=== PATIENT | male | born 1970 | race Two or more races ===

== ENCOUNTER 2017-02-26 19:53 | Emergency (ER) | payer OTHER ==
[2017-02-26 19:58] VITALS: BP 121/89; PULSE 90; TEMP 97.5; BMI 26.4
--- NOTE | 2017-02-26 20:03 | PDOC ---
History of Present Illness - General Chief Complaint: Respiratory Stated Complaint: COLD SYMPTOMS Time Seen by Provider: 02/26/17 20:01 History Source: Patient - History of Present Illness Timing/Duration: reports: other (3 days ago) Modifying Factors: improves with: coughing Associated Symptoms: reports: wheezing. denies: chest pain/soreness, fever/ chills, shortness of breath Past History - Past Medical History Allergies/Adverse Reactions: Allergies Allergy/AdvReac Type Severity Reaction Status Date / Time No Known Allergies Allergy Verified 02/26/17 19:57 Home Medications: Ambulatory Orders Azithromycin [Zithromax 250mg Tablets -] 250 mg PO DAILY #6 tab 02/26/17 HTN: Yes - Psycho/Social/Smoking Cessation Hx Suicidal Ideation: No Smoking History: Current every day smoker Number of Cigarettes Smoked Daily: 3 Information on smoking cessation initiated: No Review of Systems - Review of Systems Constitutional: No: Chills, Fever, Night Sweats, Unintentional Wgt. Loss Respiratory: Yes: Cough, Wheezing. No: Shortness of Breath Cardiac (ROS): No: Chest Pain *Physical Exam - Vital Signs Last Vital Signs Temp Pulse Resp BP Pulse Ox 97.5 F L 90 18 121/89 97 02/26/17 19:55 02/26/17 19:55 02/26/17 19:55 02/26/17 19:55 02/26/17 19:55 - Physical Exam General Appearance: Yes: Appropriately Dressed. No: Apparent Distress HEENT: positive: Normal ENT Inspection, Normal Voice. negative: Scleral Icterus (R), Scleral Icterus (L) Neck: positive: Supple Respiratory/Chest: positive: Lungs Clear, Normal Breath Sounds. negative: Respiratory Distress, Wheezing Cardiovascular: positive: Regular Rate, S1, S2 Integumentary: positive: Dry, Warm Neurologic: positive: Fully Oriented, Alert, Normal Mood/Affect Medical Decision Making - Medical Decision Making 02/26/17 20:34 46-year-old male, [id number] history, here with cough with possible wheezing 3 days. Denies shortness of breath, chest pain, fever or chills. No hemoptysis or unexplained weight loss. No sick contacts. See exam Possibly bronchitis in smoker Stable w/ clear chest/lungs -CXR -consider zpack at pr -encourage smoking cessation 02/26/17 20:56 CXR neg for infiltrates. Dc w/ javier *DC/Admit/Observation/Transfer Diagnosis at time of Disposition: Wheezing - Discharge Dispostion Disposition: HOME Condition at time of disposition: Good - Prescriptions Prescriptions: Azithromycin [Zithromax 250mg Tablets -] 250 mg PO DAILY #6 tab - Referrals Referrals: Darshana Smith MD [Primary Care Provider] - - Patient Instructions Printed Discharge Instructions: DI for Acute Bronchitis, How to Quit Smoking Additional Instructions: Take antibiotics as directed and return for worsening of symptoms Strongly consider stop smoking Please follow up with your PMD
== END 2017-02-26 21:05 | disposition home or self-care (01) ==
LOC: JERFT 19:53
DX: J20.9 Acute bronchitis, unspecified (principal); I10 Essential (primary) hypertension
CPT/HCPCS: 71020-TC; 99281-25

== ENCOUNTER 2017-05-15 20:06 | Emergency (ER) | payer OTHER ==
[2017-05-15 20:15] VITALS: BP 153/91; PULSE 78; TEMP 97.5; BMI 25.7
--- NOTE | 2017-05-15 20:45 | PDOC ---
History of Present Illness - General Chief Complaint: Pain Stated Complaint: LEFT SIDE PAIN Time Seen by Provider: 05/15/17 20:39 History Source: Patient Exam Limitations: No Limitations - History of Present Illness Initial Comments: CHIEF COMPLAINT: 46 y/o afebrile male with PMH HTN c/o left lower abdominal pain x 2 days. HISTORY OF PRESENT ILLNESS: he states the pain also travels to his left side. It is constant pain that got worse this morning. He states he also started having some burning with urination when the abdominal pain started. He denies f /c, n/v/d, CP, SOB, back pain, hematuria, constipation, blood in stool. He has not taken anything for his pain. PCP is Dr. Smith Vital signs on arrival are within normal limits. REVIEW OF SYSTEMS: GENERAL/CONSTITUTIONAL: No fever/chills. No weakness. No weight change. HEAD, EYES, EARS, NOSE AND THROAT: No change in vision. No ear pain or discharge. No sore throat. CARDIOVASCULAR: No chest pain or shortness of breath. RESPIRATORY: No cough, wheezing, or hemoptysis. GASTROINTESTINAL: +left lower abdominal pain that radiates to his left side. GENITOURINARY: +dysuria. No frequency or change in urination. MUSCULOSKELETAL: No joint or muscle swelling or pain. No neck or back pain. SKIN: No rash or easy bruising. NEUROLOGIC: No headache, vertigo, loss of consciousness, or loss of sensation. PHYSICAL EXAM: GENERAL: The patient is awake, alert, and fully oriented, in no acute distress. He is well appearing and ambulatory. HEAD: Normal with no signs of trauma. ENT: Pupils equal, round and reactive to light, extraocular movements intact, sclera anicteric, conjunctiva clear. Neck supple. LUNGS: Clear to auscultation bilaterally. Normal excursion. No respiratory distress or use of accessory muscles. CV: RRR, S1/S2, no MRG. Cap refill < 2 sec. ABDOMEN: Soft, non-distended, pain with palpation of LLQ, left pelvis, left flank and suprapubic region. No rebound, guarding or rigidity. BACK: No CVA TTP b/l. EXTREMITIES: Normal range of motion, no edema. NEUROLOGICAL: Normal speech, normal gait. CN II-XII grossly intact. PSYCH: Normal mood, normal affect. SKIN: Warm, dry, normal turgor, no rashes or lesions noted. Past History - Past Medical History Allergies/Adverse Reactions: Allergies Allergy/AdvReac Type Severity Reaction Status Date / Time No Known Allergies Allergy Verified 05/15/17 20:12 Home Medications: Ambulatory Orders Azithromycin [Zithromax 250mg Tablets -] 250 mg PO DAILY #6 tab 02/26/17 HTN: Yes - Psycho/Social/Smoking Cessation Hx Suicidal Ideation: No Smoking History: Current some day smoker Number of Cigarettes Smoked Daily: 4 Information on smoking cessation initiated: No Hx Alcohol Use: No Drug/Substance Use Hx: No Substance Use Type: None *Physical Exam - Vital Signs Last Vital Signs Temp Pulse Resp BP Pulse Ox 97.5 F L 78 20 153/91 100 05/15/17 20:12 05/15/17 20:12 05/15/17 20:12 05/15/17 20:12 05/15/17 20:12 ED Treatment Course - LABORATORY CBC & Chemistry Diagram: 05/15/17 20:30 05/15/17 20:30 Medical Decision Making - Medical Decision Making A/P: 46 y/o afebrile male with left lower abdominal pain radiating to left side and dysuria x 2 days. Plan is as follows: 1. Labs 2. UA/culture 3. IV toradol 4. GC/chlamydia 5. Spiral CT Pt states his pain has almost completely resolved after Toradol. Labs unremarkable UA unremarkable CT scan machine is currently down. The patient overheard the announcement and informs me he doesn't want to wait for it to be fixed. He wants to sign out AMA. I attempted to get him to reconsider and wait for the machine to be fixed but he said no. I suggested he take Motrin at home for pain and drink lots of water. I suggested he call his doctor tomorrow and return to the ER with any worsening or concerning symptoms. The patient ambulates without difficulty out of the emergency department. He is alert and oriented and of sound decision making capacity. He leaves AGAINST MEDICAL ADVICE. AMA-AGAINST MEDICAL ADVICE The patient is a 46-year-old male who wants to leave the [facility] Emergency Department before assessment, diagnosis and treatment are completed. The patient has been counseled in regard to the benefits of remaining for treatment and the risks of leaving before medical evaluation and care are provided. These risks are many and include failure to diagnose the condition, failure to provide needed treatment, and a failure to obtain needed specialty care as required. The patient has been informed that failure to complete needed diagnosis and treatment may result in pain, worsening of any medical conditions, possible permanent disability, and . Despite receiving detailed information regarding the benefits of completing care as well as the risks of leaving, the patient has elected to leave. An AMA form was completed. The patient has been told that they are welcome to return to the emergency department at any time should their condition worsen or if they have change their mind. *DC/Admit/Observation/Transfer Diagnosis at time of Disposition: Left flank pain - Discharge Dispostion Disposition: AGAINST MEDICAL ADVICE Condition at time of disposition: Improved - Referrals Referrals: Darshana Smith MD [Primary Care Provider] - Call tomorrow - Patient Instructions Printed Discharge Instructions: DI for Flank Pain, DI for Kidney Stones Additional Instructions: Discharge Instructions: -Take Motrin if needed for pain with food -Drink plenty of water -Follow up with your doctor in the morning -Return to the ER immediately with any worsening or concerning symptoms. Instrucciones de marychuy: -Iraj Motrin si es necesario para el dolor con la comida -Beber abundante agua -Siga con lopez mdico por la maana -Vuelva a la vahid de emergencias inmediatamente con cualquier empeoramiento o s ntomas relacionados.
[2017-05-15] MEDS ORDERED: KETOROLAC TROMETHAMINE 30 MG/1 ML VIAL IVPUSH ONE (20:46)
[2017-05-15] MEDS ORDERED: KETOROLAC TROMETHAMINE 30 MG/1 ML VIAL ONE (20:50)
[2017-05-15 21:21] LABS: URINE APPEARANCE CLEAR; URINE BILIRUBIN NEGATIVE (NEGATIVE); URINE BLOOD TRACE-INTA (NEGATIVE); URINE COLOR LT. YELLOW; URINE GLUCOSE (UA) NEGATIVE (NEGATIVE); URINE KETONE NEGATIVE (NEGATIVE); URINE LEUK ESTERASE TRACE (NEGATIVE); URINE NITRITE NEGATIVE (NEGATIVE); URINE PROTEIN NEGATIVE (NEGATIVE); URINE UROBILINOGEN 0.2 mg/dL (0.2-1.0)
[2017-05-15 21:22] LABS: BASOPHIL 0.5 % (0-2.0); EOSINOPHIL 2.2 % (0-4.5); MCH 30.5 pg (25.7-33.7); MCHC 33.8 g/dl (32.0-35.9); MEAN CELL VOLUME 90.4 fl (80-96); MEAN PLT VOLUME 9.9 fl (7.5-11.1); NEUTROPHILS 59.5 % (42.8-82.8); PLATELET COUNT 190 K/MM3 (134-434); RDW 14.2 % (11.9-15.9); WHITE BLOOD COUNT 7.1 K/mm3 (4.0-10.0)
[2017-05-15 21:24] LABS: URINE RBC <1 /hpf (0-3); URINE WBC 2 /hpf (3-5)
[2017-05-15] MEDS ORDERED: SODIUM CHLORIDE 1,000 ML IV STA (21:24)
[2017-05-15 21:43] LABS: ALBUMIN 4.4 g/dl (3.4-5.0); ANION GAP 7 (8-16); BILIRUBIN,TOTAL 0.3 mg/dL (0.2-1.0); CO2 28 mmol/L (21-32); CREATININE 1.2 mg/dL (0.7-1.3); GLUCOSE,RANDOM 106 mg/dL (74-106); SGOT/AST 12 U/L (15-37); SGPT/ALT 36 U/L (12-78); TOT PROT 7.6 g/dl (6.4-8.2)
[2017-05-15 21:44] LABS: ALK PHOS 93 U/L (45-117)
== END 2017-05-15 23:27 | disposition left against medical advice (07) ==
LOC: JER 20:06
PROC: 3E0333Z Introduction of Anti-inflammatory into Peripheral Vein, Percutaneous Approach (ICD-10-PCS; principal; 2017-05-15)
PROC: 3E0337Z Introduction of Electrolytic and Water Balance Substance into Peripheral Vein, Percutaneous Approach (ICD-10-PCS; 2017-05-15)
DX: R10.32 Left lower quadrant pain (principal)
CPT/HCPCS: 36415; 80053; 81003; 81015; 85025; 87086; 87491; 87591; 96361; 96374; 99282-25

== ENCOUNTER 2017-05-18 20:46 | Emergency (ER) | payer OTHER ==
[2017-05-18 21:12] VITALS: BP 135/74; PULSE 85; TEMP 97.6; BMI 27.1
--- NOTE | 2017-05-18 21:29 | PDOC ---
History of Present Illness - General History Source: Patient Exam Limitations: No Limitations - History of Present Illness Initial Comments: 05/18/17 21:37 The patient is a 46 year old male with a significant past medical history of HTN who presents to the ED with 4 days of left sided abdominal pain and flank pain. Patient was recently seen in the ED on 05/15/17 for similar symptoms but left against medical advice because he was unable to get a CT secondary to CT not working. Patient returns to the ED today for a CT. He reports progressively worsening left upper quadrant pain radiating to his left flank since Tuesday. He also reports intermittent episodes of small bowel movements and diarrhea. Denies fevers or chills. Denies dysuria or changes in urinary output. Denies nausea, vomiting, or diarrhea. Denies any other symptoms. Family hx: Patients father has a history of prostate cancer. <Malvin Nielsen - Last Filed: 05/18/17 23:36> - General History Source: Patient <SanchezAvinash brewer - Last Filed: 05/19/17 00:06> - General Chief Complaint: Pain, Acute Stated Complaint: ER RE VIST Time Seen by Provider: 05/18/17 21:24 Past History <Malvin Nielsen - Last Filed: 05/18/17 23:36> - Past Medical History HTN: Yes - Psycho/Social/Smoking Cessation Hx Suicidal Ideation: No Smoking History: Never smoked Have you smoked in the past 12 months: No Number of Cigarettes Smoked Daily: 4 Information on smoking cessation initiated: No Hx Alcohol Use: No Drug/Substance Use Hx: No Substance Use Type: None <Avinash Oconnell - Last Filed: 05/19/17 00:06> - Past Medical History Allergies/Adverse Reactions: Allergies Allergy/AdvReac Type Severity Reaction Status Date / Time No Known Allergies Allergy Verified 05/18/17 21:07 Home Medications: Ambulatory Orders Losartan Potassium [Cozaar -] 25 mg PO DAILY 05/18/17 Review of Systems - Review of Systems Able to Perform ROS?: Yes Comments:: 05/18/17 21:37 CONSTITUTIONAL: No reported: Fever, Chills, Diaphoresis, Generalized Weakness, Malaise, Loss of Appetite HEENT: No reported: Rhinorrhea, Nasal Congestion, Throat Pain, Throat Swelling, Difficulty Swallowing, Mouth Swelling, Ear Pain, Eye Pain, Visual Changes CARDIOVASCULAR: No reported: Chest Pain, Syncope, Palpitations, Irregular Heart Rate, Lightheadedness, Peripheral Edema RESPIRATORY: No reported: Cough, Shortness of Breath, SOB with Exertion, Orthopnea, Wheezing , Stridor, Hemoptysis GASTROINTESTINAL: + abdominal pain, diarrhea, small bowel movements No reported: Abdominal Distension, Nausea, Vomiting, Melena, Hematochezia GENITOURINARY: + flank pain No reported: Dysuria, Frequency, Urgency, Hesitancy, Genital Pain MUSCULOSKELETAL: No reported: Myalgia, Arthralgia, Joint Swelling, Back pain, Neck Pain SKIN: No reported: Rash, Itching, Pallor HEMEATOLOGIC/IMMUNOLOGIC: No reported: Easy Bleeding, Easy Bruising, Lymphadenopathy, Frequent infections ENDOCRINE: No reported: Unexplained Weight Gain, Unexplained Weight Loss, Heat Intolerance , Cold Intolerance NEUROLOGIC: No reported: Headache, Focal Weakness, Paresthesias, Vertigo, Lightheadedness, Unsteady Gait, Seizure, Mental Status Changes, Incontinence PSYCHIATRIC: No reported: Anxiety, Depression All Other Systems: Reviewed and Negative <Malvin Nielsen - Last Filed: 05/18/17 23:36> *Physical Exam - Vital Signs Last Vital Signs Temp Pulse Resp BP Pulse Ox 97.6 F 85 18 135/74 99 05/18/17 21:07 05/18/17 21:07 05/18/17 21:07 05/18/17 21:07 05/18/17 21:07 - Physical Exam Comments: 05/18/17 21:38 GENERAL: Well developed, well nourished. Awake and alert. No acute distress. HEENT: Normocephalic, atraumatic. PERRLA, EOMI. No conjunctival pallor. Sclera are non- icteric. Moist mucous membranes. Oropharynx is clear. NECK: Supple. Full ROM. No JVD. Carotid pulses 2+ and symmetric, without bruits. No thyromegaly. No lymphadenopathy. CARDIOVASCULAR: Regular rate and rhythm. No murmurs, rubs, or gallops. Distal pulses are 2+ and symmetric. PULMONARY: No evidence of respiratory distress. Lungs clear to auscultation bilaterally. No wheezing, rales or rhonchi. ABDOMINAL: Soft. Non-tender. Non-distended. No rebound or guarding. No organomegaly. Normoactive bowel sounds. MUSCULOSKELETAL Normal range of motion at all joints. No bony deformities or tenderness. No CVA tenderness. EXTREMITIES: No cyanosis. No clubbing. No edema. No calf tenderness. SKIN: Warm and dry. Normal capillary refill. No rashes. No jaundice. NEUROLOGICAL: Alert, awake, appropriate. Cranial nerves 2-12 intact. No deficits to light touch and temperature in face, upper extremities and lower extremities. No motor deficits in the in face, upper extremities and lower extremities. Normoreflexic in the upper and lower extremities. Normal speech. Toes are down- going bilaterally. Gait is normal without ataxia. PSYCHIATRIC: Cooperative. Good eye contact. Appropriate mood and affect. <Malvin Nielsen - Last Filed: 05/18/17 23:36> - Vital Signs Last Vital Signs Temp Pulse Resp BP Pulse Ox 97.6 F 85 18 135/74 99 05/18/17 21:07 05/18/17 21:07 05/18/17 21:07 05/18/17 21:07 05/18/17 21:07 <Avinash Oconnell - Last Filed: 05/19/17 00:06> ED Treatment Course - RADIOLOGY Radiograph Interpretation: 05/18/17 23:37 EXAM: CT abdomen and pelvis without contrast FINDINGS: Negative for urinary tract stone or obstruction. No bowel obstruction , free air, or free fluid. Negative for diverticulitis or colitis. Normal appendix. There is a large amount of stool in the rectum; near impaction. No acute abnormalities of the liver, gallbladder, spleen, pancreas, or adrenal glands. Otherwise no acute abnormalities. Reported by: Imaging electron microscopist <Malvin Nielsen - Last Filed: 05/18/17 23:36> Medical Decision Making - Medical Decision Making 05/19/17 00:05 Dr. Oconnell: The scribe's documentation has been prepared under my direction and personally reviewed by me in its entirery. I confirm that the note above accurately reflects all work, treatment, procedures, and medical decision making performed by me. <Avinash Oconnell - Last Filed: 05/19/17 00:06> *DC/Admit/Observation/Transfer - Attestations Scribe Attestion: 05/18/17 21:38 Documentation prepared by Malvin Nielsen, acting as medical laboratory specialist for Avinash Oconnell MD <Malvin Nielsen - Last Filed: 05/18/17 23:36> - Discharge Dispostion Admit: No <Avinash Oconnell - Last Filed: 05/19/17 00:06> Diagnosis at time of Disposition: Constipation - Discharge Dispostion Disposition: HOME Condition at time of disposition: Stable - Referrals Referrals: Darshana Smith MD [Primary Care Provider] - - Patient Instructions Printed Discharge Instructions: DI for Constipation, Increased Dietary Fiber May Improve Constipation Conditions With Pelvic Ortega Print Language: HUNGARIAN
[2017-05-19] MEDS ORDERED: LACTULOSE 20 GM/30 ML UDC (FOR ORAL USE ONLY) PO ONE (00:09)
[2017-05-19] MEDS ORDERED: LACTULOSE 20 GM/30 ML UDC (FOR ORAL USE ONLY) ONE (00:10)
== END 2017-05-19 03:56 | disposition home or self-care (01) ==
LOC: JER 20:46
DX: K59.00 Constipation, unspecified (principal); I10 Essential (primary) hypertension
CPT/HCPCS: 74176; 99282-25

== ENCOUNTER 2018-01-30 20:18 | Emergency (ER) | payer OTHER ==
--- NOTE | 2018-01-30 20:52 | PDOC ---
Rapid Medical Evaluation Time Seen by Provider: 01/30/18 20:48 Medical Evaluation: Allergies Allergy/AdvReac Type Severity Reaction Status Date / Time No Known Allergies Allergy Verified 05/18/17 21:07 I have performed a brief in-person evaluation of this patient. The patient presents with a chief complaint of: LLQ abdominal pain radiating to left side and back for 2 months that got very bad today Pertinent physical exam findings: +left CVA TTP, left flank pain and suprapubic TTP I have ordered the following: UA, labs The patient will proceed to the ED for further evaluation.
[2018-01-30 20:54] VITALS: BP 129/83; PULSE 81; TEMP 98.5; BMI 27.1
--- NOTE | 2018-01-30 21:05 | PDOC ---
History of Present Illness - General Chief Complaint: Pain Stated Complaint: PAIN/ abd pain/flank Time Seen by Provider: 01/30/18 20:48 History Source: Patient Exam Limitations: No Limitations - History of Present Illness Initial Comments: 01/30/18 21:04 Best Contact:[phone] PCP:Dr. Darshana Smith Pmhx: HTN, Constipation Pshx:10/2017/liposuction(abd) Allergies:NKDA 47-year-old male presents to the emergency department complaining of left lower quadrant pain 3 months intermittently. Patient states he's been diagnosed with constipation several times. Pain is described as 3/10 gassy nonradiating intermittent discomfort which is relieved after a good bowel movement which he hasn't had for over 2 weeks. Patient states he had a bowel movement times one hour ago but was described as "a nugget". Patient denies fever, chills, nausea/ vomiting, chest pain, shortness of breath, flank pains, urinary symptoms: Frequency/urgency/hesitancy, hematuria. Patient states the pain is similar to his previous constipation episodes. Past History - Past Medical History Allergies/Adverse Reactions: Allergies Allergy/AdvReac Type Severity Reaction Status Date / Time No Known Allergies Allergy Verified 01/30/18 20:50 Home Medications: Ambulatory Orders Losartan Potassium [Cozaar -] 25 mg PO DAILY 05/18/17 COPD: No HTN: Yes - Immunization History Immunization Up to Date: Yes - Suicide/Smoking/Psychosocial Hx Smoking History: Never smoked Have you smoked in the past 12 months: No Number of Cigarettes Smoked Daily: 4 If you are a former smoker, when did you quit?: 2017 Information on smoking cessation initiated: No Hx Alcohol Use: No Drug/Substance Use Hx: No Substance Use Type: None Review of Systems - Review of Systems Able to Perform ROS?: Yes Comments:: 01/30/18 22:55 CONSTITUTIONAL: Absent: fever, chills, diaphoresis, generalized weakness, malaise, loss of appetite GASTROINTESTINAL: +LLQ pain x 3 months off and on Absent: abdominal distension, nausea, vomiting, diarrhea, constipation, melena , hematochezia GENITOURINARY: Absent: dysuria, frequency, urgency, hesitancy, hematuria, flank pain, genital pain MUSCULOSKELETAL: Absent: myalgia, arthralgia, joint swelling SKIN: Absent: rash, itching, pallor HEMATOLOGIC/IMMUNOLOGIC: Absent: easy bleeding, easy bruising, lymphadenopathy, frequent infections ENDOCRINE: Absent: unexplained weight gain, unexplained weight loss, heat intolerance, cold intolerance Is the patient limited Danish proficient: No *Physical Exam - Vital Signs Last Vital Signs Temp Pulse Resp BP Pulse Ox 98.5 F 81 16 129/83 100 01/30/18 20:52 01/30/18 20:52 01/30/18 20:52 01/30/18 20:52 01/30/18 20:52 - Physical Exam Comments: 01/30/18 22:56 GENERAL: Well developed, well nourished. Awake and alert. No acute distress. HEENT: Normocephalic, atraumatic. PERRLA, EOMI. No conjunctival pallor. Sclera are non- icteric. Moist mucous membranes. Oropharynx is clear. NECK: Supple. Full ROM. No JVD. Carotid pulses 2+ and symmetric, without bruits. No thyromegaly. No lymphadenopathy. CARDIOVASCULAR: Regular rate and rhythm. No murmurs, rubs, or gallops. Distal pulses are 2+ and symmetric. PULMONARY: No evidence of respiratory distress. Lungs clear to auscultation bilaterally. No wheezing, rales or rhonchi. ABDOMINAL: Soft. Non-tender. Non-distended. No rebound or guarding. No organomegaly. Normoactive bowel sounds. MUSCULOSKELETAL Normal range of motion at all joints. No bony deformities or tenderness. No CVA tenderness. EXTREMITIES: No cyanosis. No clubbing. No edema. No calf tenderness. SKIN: Warm and dry. Normal capillary refill. No rashes. No jaundice. ED Treatment Course - LABORATORY CBC & Chemistry Diagram: 01/30/18 21:40 01/30/18 21:40 - RADIOLOGY Radiograph Interpretation: 01/30/18 22:56 Xray abd flat and uprt: fecal matter throughout colon Progress Note - Progress Note Progress Note: 2201hrs: Pt adamantly refuses any CTscan *DC/Admit/Observation/Transfer Diagnosis at time of Disposition: Constipation Qualifiers: Constipation type: unspecified constipation type Qualified Code(s): K59.00 - Constipation, unspecified - Discharge Dispostion Disposition: HOME Condition at time of disposition: Stable Admit: No - Referrals Referrals: Darshana Smith MD [Primary Care Provider] - Leroy Pete MD [Staff Physician] - - Patient Instructions Printed Discharge Instructions: Increased Dietary Fiber May Improve Constipation Conditions With Pelvic Ortega, DI for Constipation Additional Instructions: Increase fluids Be sure to follow with the integration architect to get a colonoscopy [id number] supportive care Return back to the emergency department for severe/persistent or worsening symptoms - Post Discharge Activity
[2018-01-30 21:46] LABS: BASO % 0.8 % (0-2.0); EOS % 2.9 % (0-4.5); HEMATOCRIT 44.4 % (35.4-49); HEMOGLOBIN 15.1 GM/dL (11.7-16.9); LYMPH % 27.1 % (8-40); MCH 30.4 pg (25.7-33.7); MCHC 34.1 g/dl (32.0-35.9); MEAN CELL VOLUME 89.4 fl (80-96); MEAN PLT VOLUME 9.9 fl (7.5-11.1); NEUT % 61.2 % (42.8-82.8); PLATELET COUNT 189 K/MM3 (134-434); RBC 4.97 M/mm3 (4.00-5.60); RDW 13.8 % (11.9-15.9)
[2018-01-30 21:49] LABS: URINE APPEARANCE CLEAR; URINE BILIRUBIN NEGATIVE (<2.0 mg/dL); URINE BLOOD NEGATIVE (NEGATIVE); URINE COLOR LTYELLOW; URINE GLUCOSE (UA) NEGATIVE (NEGATIVE); URINE KETONE NEGATIVE (NEGATIVE); URINE LEUK ESTERASE NEGATIVE (NEGATIVE); URINE NITRITE NEGATIVE (NEGATIVE); URINE PROTEIN NEGATIVE (NEGATIVE); URINE UROBILINOGEN NEGATIVE mg/dL (0.2-1.0)
[2018-01-30 22:13] LABS: ALBUMIN 4.2 g/dl (3.4-5.0); ANION GAP 4 (8-16); BLOOD UREA NITROGEN 15 mg/dL (7-18); CALCIUM 8.8 mg/dL (8.5-10.1); CHLORIDE 106 mmol/L (98-107); CO2 30 mmol/L (21-32); GLUCOSE,RANDOM 100 mg/dL (74-106); POTASSIUM 4.2 mmol/L (3.5-5.1); SODIUM 140 mmol/L (136-145)
[2018-01-30 22:16] LABS: ALK PHOS 98 U/L (45-117); BILIRUBIN,TOTAL 0.2 mg/dL (0.2-1.0); SGOT/AST 12 U/L (15-37); SGPT/ALT 28 U/L (12-78); TOT PROT 7.2 g/dl (6.4-8.2)
[2018-01-30] MEDS ORDERED: POLYETHYLENE GLYCOL 3350 119 GM BTL PO ONE (22:45)
== END 2018-01-30 23:16 | disposition home or self-care (01) ==
LOC: JER 20:18
DX: K59.00 Constipation, unspecified (principal); I10 Essential (primary) hypertension
CPT/HCPCS: 36415; 74018-TC-FY; 80053; 81003; 85025; 87086; 99284-25

== ENCOUNTER 2020-11-25 21:02 | Emergency (ER) | payer OTHER ==
[2020-11-25 21:30] VITALS: BP 126/88; PULSE 79; TEMP 98.2; BMI 23.1
[2020-11-25] MEDS ORDERED: ACETAMINOPHEN 1000 MG/100 ML VIAL (NON FORMULARY) IVPB ONE (22:58)
[2020-11-25] MEDS ORDERED: FAMOTIDINE 20 MG/50 ML IVPB 20 MG/50 ML MG IVPB ONE ×2 (22:58→23:05)
[2020-11-25] MEDS ORDERED: ACETAMINOPHEN INJECTION 100 ML IVPB ONE (23:05)
[2020-11-25 23:39] LABS: BASO % 0.9 % (0-2.0); EOS % 1.3 % (0-4.5); HEMATOCRIT 42.4 % (35.4-49); HEMOGLOBIN 14.1 GM/dL (11.7-16.9); LYMPH % 33.1 % (8-40); MCH 31.4 pg (25.7-33.7); MCHC 33.4 g/dl (32.0-35.9); MEAN CELL VOLUME 94.2 fl (80-96); MEAN PLT VOLUME 9.9 fl (7.5-11.1); MONO % 7.3 % (3.8-10.2); NEUT % 57.4 % (42.8-82.8); PLATELET COUNT 228 K/MM3 (134-434); RDW 13.2 % (11.9-15.9); WHITE BLOOD COUNT 7.4 K/mm3 (4.0-10.0)
[2020-11-25 23:52] LABS: POTASSIUM 4.1 mmol/L (3.5-5.1)
[2020-11-25 23:54] LABS: CALCIUM 9.7 mg/dL (8.5-10.1)
[2020-11-25 23:55] LABS: ALBUMIN 4.6 g/dl (3.4-5.0); BLOOD UREA NITROGEN 13.9 mg/dL (7-18); INR 0.95 (0.83-1.09); PROTHROMBIN TIME (PATIENT) 11.5 SEC (9.7-13.0)
[2020-11-25 23:58] LABS: ACTIVATED PTT 35.1 SECONDS (25.2-36.5)
[2020-11-25 23:59] LABS: BILIRUBIN,TOTAL 0.4 mg/dL (0.2-1)
[2020-11-26] LABS: TOT PROT 7.8 g/dl (6.4-8.2)
[2020-11-26 00:30] LABS: PH,URINE 5.5 (5.0-8.0); URINE APPEARANCE CLEAR; URINE BILIRUBIN NEGATIVE (NEGATIVE); URINE COLOR YELLOW; URINE GLUCOSE (UA) NEGATIVE (NEGATIVE); URINE KETONE TRACE (NEGATIVE); URINE LEUK ESTERASE NEGATIVE (NEGATIVE); URINE NITRITE NEGATIVE (NEGATIVE); URINE PROTEIN NEGATIVE (NEGATIVE)
[2020-11-26 00:34] LABS: EPI CELLS 4 /uL (0-25.1); HYALINE CASTS 0 /uL (0-3.1); URINE BACTERIA 14 /uL (0-1359); URINE RBC 4 /uL (0-23.9); URINE WBC 2 /uL (0-25.8)
== END 2020-11-26 01:31 | disposition home or self-care (01) ==
LOC: JER 21:02
PROC: 3E033GC Introduction of Other Therapeutic Substance into Peripheral Vein, Percutaneous Approach (ICD-10-PCS; principal; 2020-11-25)
DX: K59.00 Constipation, unspecified (principal)
CPT/HCPCS: 36415; 74177-TC; 80053; 81003; 82272; 83690; 85025; 85610; 85730; 99285-25; J0131; Q9967

== ENCOUNTER 2022-04-29 18:58 | Emergency (ER) | payer OTHER ==
[2022-04-29 19:26] VITALS: BP 112/73; PULSE 90; RESP 16; TEMP 98.7; BMI 24.1
[2022-04-29] MEDS ORDERED: DEXAMETHASONE SOD PHOSPHATE 10 MG/1 ML VIAL PO ONE (20:57)
[2022-04-29] MEDS ORDERED: DEXAMETHASONE SOD PHOSPHATE 10 MG/1 ML VIAL ONE (20:57)
== END 2022-04-29 21:32 | disposition home or self-care (01) ==
LOC: JER 18:58
DX: J02.9 Acute pharyngitis, unspecified (principal)
CPT/HCPCS: 99283-25

== ENCOUNTER 2022-10-25 13:41 | Emergency (ER) | payer OTHER ==
[2022-10-25 14:13] VITALS: BP 126/81; PULSE 77; RESP 20; TEMP 98.1; BMI 21.7
[2022-10-25] MEDS ORDERED: FAMOTIDINE 20 MG/50 ML IVPB 20 MG/50 ML MG IVPB ONE ×2 (14:45→14:48)
[2022-10-25] MEDS ORDERED: ACETAMINOPHEN 1000 MG/100 ML BAG IVPB ONE (14:45)
[2022-10-25 15:20] LABS: INR 1.05 (0.83-1.09); PROTHROMBIN TIME (PATIENT) 12.1 SEC (9.7-13.0)
[2022-10-25 15:25] LABS: BASO % 0.6 % (0-2.0); EOS % 1.2 % (0-4.5); HEMATOCRIT 44.3 % (35.4-49); HEMOGLOBIN 14.9 GM/dL (11.7-16.9); LYMPH % 24.6 % (8-40); MCH 32.6 pg (25.7-33.7); MCHC 33.8 g/dl (32.0-35.9); MEAN CELL VOLUME 96.6 fl (80-96); MEAN PLT VOLUME 9.2 fl (7.5-11.1); MONO % 7.1 % (3.8-10.2); NEUT % 66.5 % (42.8-82.8); PLATELET COUNT 252 10^3/uL (134-434); RBC 4.58 M/mm3 (4.00-5.60); RDW 13.7 % (11.9-15.9); WHITE BLOOD COUNT 7.4 K/mm3 (4.0-10.0)
[2022-10-25 15:36] LABS: BLOOD UREA NITROGEN 20.1 mg/dL (7-18); CALCIUM 9.4 mg/dL (8.5-10.1)
[2022-10-25 15:37] LABS: ALBUMIN 4.2 g/dl (3.4-5.0)
[2022-10-25 15:40] LABS: CREATININE 1.1 mg/dL (0.55-1.3)
[2022-10-25 15:41] LABS: BILIRUBIN,TOTAL 0.3 mg/dL (0.2-1); TOT PROT 7.6 g/dl (6.4-8.2)
== END 2022-10-25 19:40 | disposition home or self-care (01) ==
LOC: JER 13:41
PROC: 3E033GC Introduction of Other Therapeutic Substance into Peripheral Vein, Percutaneous Approach (ICD-10-PCS; principal; 2022-10-25)
DX: R10.32 Left lower quadrant pain (principal)
CPT/HCPCS: 0241U-QW; 36415; 74177-TC; 80053; 83690; 85025; 85610; 99285-25; Q9967

== ENCOUNTER 2023-04-05 21:41 | Emergency (ER) | payer OTHER ==
[2023-04-05 21:53] VITALS: BP 123/77; PULSE 116; RESP 18; TEMP 98.1; BMI 24.4
== END 2023-04-05 23:00 | disposition left against medical advice (07) ==
LOC: JER 21:41
DX: R00.2 Palpitations (principal)
CPT/HCPCS: 93005; 93010; 99283-25

== ENCOUNTER 2023-05-22 14:56 | Emergency (ER) | payer OTHER ==
[2023-05-22 15:05] VITALS: BP 133/89; PULSE 94; RESP 18; TEMP 98.4; BMI 21.7
[2023-05-22 18:11] LABS: BASO % 0.6 % (0-2.0); EOS % 0.4 % (0-4.5); HEMATOCRIT 46.1 % (35.4-49); HEMOGLOBIN 15.4 GM/dL (11.7-16.9); MCH 32.3 pg (25.7-33.7); MCHC 33.4 g/dl (32.0-35.9); MEAN CELL VOLUME 96.5 fl (80-96); MEAN PLT VOLUME 9.7 fl (7.5-11.1); MONO % 7.6 % (3.8-10.2); NEUT % 67.4 % (42.8-82.8); PLATELET COUNT 252 10^3/uL (134-434); RBC 4.78 M/mm3 (4.00-5.60); RDW 13.8 % (11.9-15.9); WHITE BLOOD COUNT 8.5 K/mm3 (4.0-10.0)
[2023-05-22 18:19] LABS: INR 0.98 (0.83-1.09); PROTHROMBIN TIME (PATIENT) 11.4 SEC (9.7-13.0)
[2023-05-22 18:22] LABS: ACTIVATED PTT 31.8 SECONDS (25.2-36.5)
[2023-05-22 18:37] LABS: CHLORIDE 108 mmol/L (98-107); SODIUM 140 mmol/L (136-145)
[2023-05-22 18:39] LABS: BLOOD UREA NITROGEN 10.7 mg/dL (7-18); CALCIUM 9.3 mg/dL (8.5-10.1); CO2 27 mmol/L (21-32); GLUCOSE,RANDOM 103 mg/dL (74-106); MAGNESIUM 2.5 mg/dL (1.8-2.4)
[2023-05-22 18:40] LABS: ALBUMIN 4.5 g/dl (3.4-5.0)
[2023-05-22 18:42] LABS: SGPT/ALT 38 U/L (13-61)
[2023-05-22 18:43] LABS: CREATININE 1.1 mg/dL (0.55-1.3); SGOT/AST 50 U/L (15-37)
[2023-05-22 18:44] LABS: BILIRUBIN,TOTAL 0.4 mg/dL (0.2-1)
[2023-05-22 18:45] LABS: ALK PHOS 95 U/L (45-117)
[2023-05-22 18:48] LABS: N-TERMINAL BNP 45.1 pg/ml (5-125)
[2023-05-22 18:56] LABS: ANION GAP 6 MMOL/L (8-16); POTASSIUM 6.3 mmol/L (3.5-5.1)
[2023-05-22 20:35] LABS: POTASSIUM 4.4 mmol/L (3.5-5.1)
[2023-05-22 20:37] LABS: BLOOD UREA NITROGEN 10.9 mg/dL (7-18); CALCIUM 8.8 mg/dL (8.5-10.1)
== END 2023-05-22 22:03 | disposition home or self-care (01) ==
LOC: JER 14:56
DX: R07.9 Chest pain, unspecified (principal); R00.2 Palpitations
CPT/HCPCS: 36415; 71045-TC-FY; 80048; 80053; 83735; 83880; 84439; 84443; 84484; 85025; 85610; 85730; 93005; 93010; 99285-25

== ENCOUNTER 2023-11-18 16:57 | Emergency (ER) | payer OTHER ==
[2023-11-18 17:03] VITALS: BP 137/92; RESP 18; TEMP 97.7; BMI 21.7
[2023-11-18 17:24] VITALS: PULSE 94
== END 2023-11-18 18:13 | disposition home or self-care (01) ==
LOC: JERFT 16:57 → JER 16:57 → JERFT 18:13
DX: R09.81 Nasal congestion (principal); H93.8X1 Other specified disorders of right ear
CPT/HCPCS: 99283-25

== ENCOUNTER 2023-12-18 12:59 | Emergency (ER) | payer OTHER ==
[2023-12-18 13:12] VITALS: BP 100/61; PULSE 96; RESP 18; TEMP 97.5; BMI 23.7
[2023-12-18] MEDS ORDERED: ACETAMINOPHEN 500 MG TABLET (FP) ONE (14:54)
[2023-12-18] MEDS: ACETAMINOPHEN 500 MG TABLET (FP) PO ONE (14:55)
[2023-12-18] MEDS: PENICILLIN G BENZATHINE 1,200,000 UNIT/2 ML PFS IM ONE (14:59)
== END 2023-12-18 15:19 | disposition home or self-care (01) ==
LOC: JER 12:59 → JERFT 12:59
DX: J02.0 Streptococcal pharyngitis (principal); R52 Pain, unspecified; R50.9 Fever, unspecified; R07.0 Pain in throat; Z20.822 Contact with and (suspected) exposure to COVID-19
CPT/HCPCS: 0241U-QW; 87651; 99284-25

== ENCOUNTER 2024-02-14 11:21 | Emergency (ER) | payer OTHER ==
[2024-02-14 11:26] VITALS: RESP 20; BMI 21.7
[2024-02-14] MEDS ORDERED: METOCLOPRAMIDE HCL INJECTION 10 MG/2 ML VIAL ONE (12:24)
[2024-02-14] MEDS ORDERED: ACETAMINOPHEN INJECTION 100 ML IVPB ONE (12:25)
[2024-02-14] MEDS: ACETAMINOPHEN 1000 MG/100 ML BAG IVPB ONE (12:50)
[2024-02-14] MEDS: METOCLOPRAMIDE HCL INJECTION 10 MG/2 ML VIAL IVPB ONE (12:50)
[2024-02-14] MEDS: SODIUM CHLORIDE 0.9% 500 ML INFUS.BAG IV ONE (12:50)
[2024-02-14 13:19] LABS: BASO % 0.8 % (0-2.0); EOS % 0.4 % (0-4.5); HEMATOCRIT 43.7 % (35.4-49); HEMOGLOBIN 14.9 GM/dL (11.7-16.9); MCH 31.3 pg (25.7-33.7); MEAN CELL VOLUME 92.1 fl (80-96); MEAN PLT VOLUME 8.8 fl (7.5-11.1); MONO % 5.2 % (3.8-10.2); NEUT % 83.6 % (42.8-82.8); PLATELET COUNT 241 10^3/uL (134-434); RBC 4.75 M/mm3 (4.00-5.60); WHITE BLOOD COUNT 9.3 K/mm3 (4.0-10.0)
[2024-02-14] MEDS ORDERED: chlordiazePOXIDE HCL 25 MG CAPSULE ONE (13:20)
[2024-02-14] MEDS: chlordiazePOXIDE HCL 25 MG CAPSULE PO ONE (13:24)
[2024-02-14 13:34] LABS: POTASSIUM 4.4 mmol/L (3.5-5.1)
[2024-02-14 13:37] LABS: ALBUMIN 4.3 g/dl (3.4-5.0); BLOOD UREA NITROGEN 9.7 mg/dL (7-18); CALCIUM 9.7 mg/dL (8.5-10.1); MAGNESIUM 2.3 mg/dL (1.8-2.4)
[2024-02-14 13:42] LABS: BILIRUBIN,TOTAL 0.5 mg/dL (0.2-1); TOT PROT 7.8 g/dl (6.4-8.2)
[2024-02-14 14:36] VITALS: BP 103/73; PULSE 62; TEMP 98.3
== END 2024-02-14 14:41 | disposition home or self-care (01) ==
LOC: JER 11:21
PROC: 3E030NZ Introduction of Analgesics, Hypnotics, Sedatives into Peripheral Vein, Open Approach (ICD-10-PCS; principal; 2024-02-14)
PROC: 3E030GC Introduction of Other Therapeutic Substance into Peripheral Vein, Open Approach (ICD-10-PCS; 2024-02-14)
PROC: 3E030GC Introduction of Other Therapeutic Substance into Peripheral Vein, Open Approach (ICD-10-PCS; 2024-02-14)
DX: F41.9 Anxiety disorder, unspecified (principal); R00.2 Palpitations; R07.89 Other chest pain; R20.2 Paresthesia of skin
CPT/HCPCS: 36415; 80053; 83735; 84484; 85025; 93005; 93010; 96374; 96375; 99284-25; J0131

== ENCOUNTER 2024-03-22 09:54 | Emergency (ER) | payer OTHER ==
[2024-03-22 10:20] VITALS: BP 140/95; PULSE 91; RESP 18; TEMP 98.6; BMI 25.4
[2024-03-22] MEDS ORDERED: DEXAMETHASONE SOD PHOSPHATE 10 MG/1 ML VIAL IVPUSH ONE (11:16)
[2024-03-22] MEDS ORDERED: SODIUM CHLORIDE 0.9% 500 ML INFUS.BAG IV ONE (11:16)
[2024-03-22] MEDS ORDERED: DEXAMETHASONE SOD PHOSPHATE 10 MG/1 ML VIAL IM ONE (11:39)
[2024-03-22] MEDS ORDERED: FAMOTIDINE 20 MG TABLET ONE (11:53)
[2024-03-22] MEDS ORDERED: diphenhydrAMINE HCL 25 MG CAPSULE (FP) PO ONE (11:53)
[2024-03-22] MEDS ORDERED: DEXAMETHASONE SOD PHOSPHATE 10 MG/1 ML VIAL ONE (11:54)
[2024-03-22] MEDS: diphenhydrAMINE HCL 25 MG CAPSULE (FP) PO ONE (12:02)
[2024-03-22] MEDS: FAMOTIDINE 20 MG TABLET PO ONE (12:02)
[2024-03-22 12:12] LABS: BASO % 0.7 % (0-2.0); EOS % 0.6 % (0-4.5); HEMATOCRIT 42.2 % (35.4-49); HEMOGLOBIN 14.1 GM/dL (11.7-16.9); LYMPH % 17.4 % (8-40); MCH 31.2 pg (25.7-33.7); MCHC 33.5 g/dl (32.0-35.9); MEAN CELL VOLUME 93.2 fl (80-96); MEAN PLT VOLUME 9.2 fl (7.5-11.1); MONO % 9.1 % (3.8-10.2); NEUT % 72.2 % (42.8-82.8); PLATELET COUNT 208 10^3/uL (134-434); RBC 4.53 M/mm3 (4.00-5.60); RDW 14.2 % (11.9-15.9); WHITE BLOOD COUNT 7.7 K/mm3 (4.0-10.0)
[2024-03-22 12:24] LABS: ALBUMIN 4.3 g/dl (3.4-5.0); BLOOD UREA NITROGEN 14.3 mg/dL (7-18); CALCIUM 9.6 mg/dL (8.5-10.1)
[2024-03-22 12:27] LABS: CREATININE 0.9 mg/dL (0.55-1.3)
[2024-03-22 12:29] LABS: BILIRUBIN,TOTAL 0.4 mg/dL (0.2-1); TOT PROT 7.4 g/dl (6.4-8.2)
[2024-03-22 12:57] LABS: SYPHILIS W/ RPR CONF NON-REACTIVE (NONREACTIVE)
[2024-03-22] MEDS: DEXAMETHASONE SOD PHOSPHATE 10 MG/1 ML VIAL PO ONE (13:14)
[2024-03-22 13:27] LABS: HIV INTERPRETATION NEGATIVE (NEGATIVE)
== END 2024-03-22 13:14 | disposition home or self-care (01) ==
LOC: JERFT 09:54
DX: L50.0 Allergic urticaria (principal); R21 Rash and other nonspecific skin eruption
CPT/HCPCS: 36415; 80053; 85025; 86780; 87389; 87491; 87591; 99283-25; J1100

== ENCOUNTER 2024-08-03 10:23 | Emergency (ER) | payer OTHER ==
[2024-08-03 10:34] VITALS: BMI 21.7
[2024-08-03] MEDS ORDERED: ACETAMINOPHEN INJECTION 100 ML ONE (14:24)
[2024-08-03] MEDS ORDERED: ONDANSETRON 4 MG/2 ML VIAL ONE (14:24)
[2024-08-03] MEDS ORDERED: MAG HYDROX/AL HYDROX/SIMETH 30 ML UNIT-DOSE CUP ONE (14:24)
[2024-08-03 14:34] LABS: BASO % 0.5 % (0-2.0); EOS % 0.3 % (0-4.5); HEMATOCRIT 43.3 % (35.4-49); HEMOGLOBIN 14.5 GM/dL (11.7-16.9); LYMPH % 21.1 % (8-40); MCH 30.8 pg (25.7-33.7); MCHC 33.4 g/dl (32.0-35.9); MEAN CELL VOLUME 92.3 fl (80-96); MEAN PLT VOLUME 8.5 fl (7.5-11.1); MONO % 6.6 % (3.8-10.2); NEUT % 71.5 % (42.8-82.8); PLATELET COUNT 207 10^3/uL (134-434); RBC 4.69 M/mm3 (4.00-5.60); RDW 13.5 % (11.9-15.9); WHITE BLOOD COUNT 6.3 K/mm3 (4.0-10.0)
[2024-08-03] MEDS: MAG HYDROX/AL HYDROX/SIMETH 30 ML UNIT-DOSE CUP PO ONE (14:45)
[2024-08-03] MEDS: ACETAMINOPHEN 1000 MG/100 ML BAG IVPB ONE (14:45)
[2024-08-03] MEDS: ONDANSETRON 4 MG/2 ML VIAL IVPB ONE (14:45)
[2024-08-03] MEDS ORDERED: FAMOTIDINE 20 MG/50 ML IVPB 20 MG/50 ML MG IVPB ONE (15:07)
[2024-08-03 15:10] LABS: POTASSIUM 4.5 mmol/L (3.5-5.1)
[2024-08-03 15:13] LABS: ALBUMIN 4.3 g/dl (3.4-5.0); BLOOD UREA NITROGEN 12.1 mg/dL (7-18); CALCIUM 9.3 mg/dL (8.5-10.1); MAGNESIUM 2.1 mg/dL (1.8-2.4)
[2024-08-03] MEDS: FAMOTIDINE 20 MG/50 ML IVPB 20 MG/50 ML MG IVPB ONE (15:13)
[2024-08-03 15:18] LABS: BILIRUBIN,TOTAL 0.4 mg/dL (0.2-1); TOT PROT 7.5 g/dl (6.4-8.2)
[2024-08-03 15:54] VITALS: BP 116/75; PULSE 85; RESP 18; TEMP 98.5
== END 2024-08-03 17:07 | disposition home or self-care (01) ==
LOC: JER 10:23
PROC: 3E033GC Introduction of Other Therapeutic Substance into Peripheral Vein, Percutaneous Approach (ICD-10-PCS; principal; 2024-08-03)
PROC: 3E033NZ Introduction of Analgesics, Hypnotics, Sedatives into Peripheral Vein, Percutaneous Approach (ICD-10-PCS; 2024-08-03)
PROC: 3E033GC Introduction of Other Therapeutic Substance into Peripheral Vein, Percutaneous Approach (ICD-10-PCS; 2024-08-03)
DX: R07.2 Precordial pain (principal); F41.9 Anxiety disorder, unspecified; R10.13 Epigastric pain
CPT/HCPCS: 36415; 71045-TC-FY; 80053; 83690; 83735; 84484; 85025; 93005; 93010; 99285-25; J0131

== ENCOUNTER 2024-11-20 18:22 | Emergency (ER) | payer OTHER ==
[2024-11-20 18:32] VITALS: BP 122/74; PULSE 74; RESP 18; TEMP 99.4; BMI 22.3
[2024-11-20] MEDS: ACETAMINOPHEN 500 MG TABLET (FP) PO ONE (20:14)
== END 2024-11-20 21:08 | disposition home or self-care (01) ==
LOC: JERFT 18:22
DX: J10.1 Influenza due to other identified influenza virus with other respiratory manifestations (principal); R50.9 Fever, unspecified; R05.9 Cough, unspecified; M79.10 Myalgia, unspecified site; Z20.822 Contact with and (suspected) exposure to COVID-19
CPT/HCPCS: 0241U-QW; 71046-TC-FY; 99284-25